=== PATIENT | male | born 1960 | race Caucasian/White ===

== ENCOUNTER → 2019-09-18 13:57 | Outpatient (CLI) | payer OTHER, SELFPAY ==
[2019-09-18 14:38] LABS: Basophils % 0.6 % (0.1-2.0); Eosinophils # 0.3 K/mm3 (0.0-0.4); Eosinophils % 4.8 % (0.1-12.0); Hematocrit 51.4 % (42.0-52.0); Hemoglobin 17.6 g/dL (14.1-18.0); Lymphocytes # 1.9 K/mm3 (0.7-4.5); Lymphocytes % 27.1 % (10-50); Mean Corpuscular HGB Conc 34.2 g/dL (31.8-35.4); Mean Corpuscular Hemoglobin 31.7 pg (27.0-31.2); Mean Corpuscular Volume 92.7 fl (80-94); Mean Platelet Volume 8.5 fl (7.4-10.4); Monocytes # 0.6 K/mm3 (0.1-1.0); Monocytes % 7.9 % (1.7-9.3); Neutrophils # 4.2 K/mm3 (1.8-7.8); Neutrophils % 59.6 % (37.0-80.0); Platelet Count 233 K/mm3 (142-424); Red Blood Count 5.54 M/mm3 (4.60-6.20); Red Cell Distribution Width 12.8 % (11.5-17.5); White Blood Count 7.1 K/mm3 (4.8-10.8)
[2019-09-18 14:46] LABS: Chloride 102 mmol/L (98-107)
[2019-09-18 14:47] LABS: Potassium 4.5 mmoL/L (3.5-5.1); Sodium 134 mmol/L (136-145)
[2019-09-18 14:49] LABS: Alanine Aminotransferase 37 U/L (12-78); Albumin Level 4.4 g/dl (3.5-5.0); Albumin/Globulin Ratio 1.6 (1.1-1.8); Alkaline Phosphatase 60 U/L (38-126); Anion Gap 11.5 mEq/L (5-15); Aspartate Amino Transferase 34 U/L (17-59); Bilirubin,Total 0.7 mg/dl (0.2-1.3); Blood Urea Nitrogen 14 mg/dl (9-20); Carbon Dioxide 25 mmol/L (22.0-30.0); Estimated Glomerular Filt Rate 76 ml/min (>60); GFR (African American) 92 ML/MIN (>60); Globulin 2.8 g/dL (1.3-3.2); Total Protein,Serum 7.2 g/dl (6.3-8.2)
[2019-09-18 14:50] LABS: Calcium 9.4 mg/dl (8.4-10.2); Chol/HDL Ratio 3.4 (1-3.5); Cholesterol 213 mg/dl (140-200); Glucose 107 mg/dl (74-100); HDL Cholesterol 62 mg/dl (40-60); Triglycerides 132 mg/dl (30-150); VLDL Cholesterol 26 mg/dL (0-40)
[2019-09-18 15:01] LABS: Direct LDL Cholesterol 139.43 mg/dL (100-129)
[2019-09-18 15:06] LABS: T4 (Thyroxine) 10.2 ug/dl (5.53-11.0)
[2019-09-18 15:20] LABS: Thyroid Stimulating Hormone 3.97 uIU/mL (0.465-4.68)
[2019-09-20 04:47] LABS: PSA, Free 0.27 ng/mL
[2019-09-22 12:40] LABS: Testosterone, Total, LC/MS 455.6 ng/dL (264.0-916.0)
== END ==
PROVIDERS: Visit Provider Family Medicine
DX: R53.83 Other fatigue (principal); E29.1 Testicular hypofunction; M19.90 Unspecified osteoarthritis, unspecified site; I10 Essential (primary) hypertension
CPT/HCPCS: 80053; 80061; 84153; 84154; 84402; 84403; 84436; 84443; 85025

== ENCOUNTER → 2020-05-31 13:51 | Outpatient (CLI) | payer OTHER, SELFPAY ==
[2020-05-31 14:03] LABS: Alanine Aminotransferase 47 U/L (12-78); Albumin Level 4.7 g/dl (3.5-5.0); Albumin/Globulin Ratio 1.5 (1.1-1.8); Alkaline Phosphatase 67 U/L (38-126); Anion Gap 12.6 mEq/L (5-15); Aspartate Amino Transferase 39 U/L (17-59); Bilirubin,Total 0.5 mg/dl (0.2-1.3); Blood Urea Nitrogen 13 mg/dl (9-20); Calcium 9.7 mg/dl (8.4-10.2); Carbon Dioxide 22 mmol/L (22.0-30.0); Chloride 107 mmol/L (98-107); Chol/HDL Ratio 4.2 (1-3.5); Cholesterol 238 mg/dl (140-200); Estimated Glomerular Filt Rate 86 ml/min (>60); GFR (African American) 104 ML/MIN (>60); Globulin 3.1 g/dL (1.3-3.2); Glucose 92 mg/dl (74-100); HDL Cholesterol 57 mg/dl (40-60); Potassium 4.6 mmoL/L (3.5-5.1); Sodium 137 mmol/L (136-145); Total Protein,Serum 7.8 g/dl (6.3-8.2); Triglycerides 236 mg/dl (30-150); VLDL Cholesterol 47 mg/dL (0-40)
[2020-05-31 14:14] LABS: Direct LDL Cholesterol 145.37 mg/dL (100-129)
[2020-05-31 14:25] LABS: Basophils # 0.1 K/mm3 (0-0.2); Basophils % 0.6 % (0.1-2.0); Eosinophils # 0.4 K/mm3 (0.0-0.4); Eosinophils % 4.9 % (0.1-12.0); Hematocrit 51.2 % (42.0-52.0); Hemoglobin 16.9 g/dL (14.1-18.0); Lymphocytes # 2.1 K/mm3 (0.7-4.5); Lymphocytes % 24.4 % (10-50); Mean Corpuscular HGB Conc 33.1 g/dL (31.8-35.4); Mean Corpuscular Hemoglobin 31.2 pg (27.0-31.2); Mean Corpuscular Volume 94.2 fl (80-94); Mean Platelet Volume 8.3 fl (7.4-10.4); Monocytes # 0.7 K/mm3 (0.1-1.0); Monocytes % 7.5 % (1.7-9.3); Neutrophils # 5.5 K/mm3 (1.8-7.8); Neutrophils % 62.6 % (37.0-80.0); Platelet Count 248 K/mm3 (142-424); Red Blood Count 5.43 M/mm3 (4.60-6.20); Red Cell Distribution Width 12.6 % (11.5-17.5); White Blood Count 8.7 K/mm3 (4.8-10.8)
[2020-05-31 14:35] LABS: Prostate Specific Ag Screen 0.9 ng/ml (0.0-4.0)
[2020-06-06 19:43] LABS: Testosterone, Total, LC/MS 617.8 ng/dL (264.0-916.0); Testosterone,Free 4.7 pg/mL (6.6-18.1)
== END ==
PROVIDERS: Visit Provider Family Medicine
DX: E29.1 Testicular hypofunction (principal); M19.90 Unspecified osteoarthritis, unspecified site; Z12.5 Encounter for screening for malignant neoplasm of prostate; Z79.899 Other long term (current) drug therapy
CPT/HCPCS: 80053; 80061; 84402; 84403; 85025; G0103

== ENCOUNTER → 2020-07-02 07:40 | Outpatient (CLI) | payer OTHER, SELFPAY ==
--- NOTE | 2020-07-02 | CA_ITS ---
APPROVED REPORT Exam: Pharmacologic Technologist: Joyce Inman Ht: 6 ft 7 in Wt: 234 lbs BSA: 2.44 m2 HR: 71 bpm BP: 136/90 mmHg Indications: Shortness of Air, chest pain, Bruit Medical History Medications: Lisinopril,,,,, Lorazepam,,,,, Aspirin,,,,, Citalopram,,,,, Nitroglycerin,,,,, Testosterone,,,,, Stress Test Details Test: LEXISCAN HR Resting HR: 74 bpm Max Heart Rate (APMHR): 159.289436 bpm Max HR Achieved: 114 bpm Target HR (85% APMHR): 135.663419 bpm % of APMHR: 71.70 Recovery HR: 87 bpm BP Resting BP: 136.0/90.0 mmHg Max BP: 154.0/96.0 mmHg Recovery BP: 147.0/97.0 mmHg ECG Resting ECG: Normal sinus rhythm, right bundle branch block Clinical Exercise duration: 04:00 min Highest Stage Achieved: Stress ECG Conclusion Symptoms: Shortness of air, mild chest tightness, lightheaded Arrhythmias/Ectopy: None ST-T Changes: No significan changes Conclusion: Unremarkable Lexiscan stress. Myoview images reported separately. Electronically signed by : Johnathon Martini, 07/02/2020 21:57:52
--- NOTE | 2020-07-02 07:41 | NM_ITS ---
APPROVED REPORT Exam: Nuclear Stress Test Indication: Chest pain, Abnormal EKG, HTN, High cholesterol Patient Location: Outpatient Stress Tech: Joyce Inman [place] Tech:Yoanna Chowdary, ARRT, RT (R)(N) Ht: 6 ft 7 in Wt: 240 lbs HR: 71 bpm BP: 136/90 mmHg BSA: 2.46 m2 BMI: 27.0 History: Chest pain, Abnormal EKG, HTN, High cholesterol Procedure: Patient received a 0.4 mg of intravenous Lexiscan, resting heart rate 71 bpm, resting blood pressure 136/90 mmHg, with Lexiscan maximum heart rate achived was 111 bpm which is Less than 85 % of the maximum predicted heart rate and blood pressure was 131/82 mmHg. Electrocardiogram Resting electrocardiogram showed sinus rhythm right bundle branch block, with Lexiscan there is less than 1.[address] segment depression noted from the baseline EKG. The EKG portion of the Lexiscan is nondiagnostic. Cardiac Stress and Resting SPECT Images: Cardiac Stress and Resting SPECT images were obtained using technetium 99m Myoview 30.0 mCi stress and 9.60 mCi at rest. Gated SPECT for analysis of segmental wall motion and calculation of the ejection fraction also done. Cardiac stress and resting SPECT images show uniform myocardial activity without segmental perfusion abnormality, computer derived ejection fraction is 57% with no regional wall motion abnormality, right ventricle is mildly enlarged with normal contractility, however there is mild transient ischemic dilatation of the left ventricle seen raising the concerns for presence of balanced ischemia. Conclusion: 1. The EKG portion of the Lexiscan is nondiagnostic. 2. No scintigraphic evidence of reversible ischemia seen, computer derived ejection fraction is 57% with no regional wall motion abnormality, right ventricle is mildly enlarged with normal contractility, however there is mild transient ischemic dilatation of the left ventricle seen, raising the concerns for presence of balanced ischemia. 3. Abnormal Lexiscan Myoview study. Electronically signed by : Johnathon Martini, 07/02/2020 22:09:14
--- NOTE | 2020-07-02 08:02 | CA_ITS ---
APPROVED REPORT [place] [facility] Attendant: JAQUELIN Laterality: Bilateral Study Quality: Excellent Indications: family hx of lorenza, rt bruit Doppler Spectral Velocity Analysis ECA (R) 88.30/17.10 cm/s ECA (L) 84.50/13.50 cm/s dICA (R) 85.70/34.30 cm/s dICA (L) 74.50/26.60 cm/s Vimal (R) 67.70/24.80 cm/s Vimal (L) 72.00/25.70 cm/s pICA (R) 85.70/24.00 cm/s pICA (L) 110.50/27.40 cm/s dCCA (R) 114.80/31.70 cm/s dCCA (L) 96.00/26.60 cm/s pCCA (R) 113.10/24.80 cm/s pCCA (L) 121.70/23.10 cm/s Vert (R) 37.90/14.80 cm/s Vert (L) 42.60/12.00 cm/s ICA/CCA 0.76 ICA/CCA 1.15 Findings Duplex evaluation demonstrates antegrade flow of the bilateral Vertebral Arteries. Duplex evaluation demonstrates stenosis of the right proximal internal carotid artery <20% with PSV <140 cm/sec, EDV <100 cm/sec, and IC/CC Ratio <4.0. Duplex evaluation demonstrates stenosis of the left proximal internal carotid artery <20% with PSV <140 cm/sec, EDV <100 cm/sec, and IC/CC Ratio <4.0. Conclusion Duplex evaluation demonstrates antegrade flow of the bilateral Vertebral Arteries. Duplex evaluation demonstrates stenosis of the right proximal internal carotid artery <20% with PSV <140 cm/sec, EDV <100 cm/sec, and IC/CC Ratio <4.0. Duplex evaluation demonstrates stenosis of the left proximal internal carotid artery <20% with PSV <140 cm/sec, EDV <100 cm/sec, and IC/CC Ratio <4.0. Electronically signed by : Delroy Bird MD 07/02/2020 17:04:42
--- NOTE | 2020-07-02 08:02 | CA_ITS ---
APPROVED REPORT EXAM: Comprehensive 2D, Doppler, and color-flow Echocardiogram Nursing Associate: Leonor Oconnell, MATILDA, RVS Ht: 6 ft 7 in Wt: 234lbs BSA: 2.44 HR: 67 bpm BP: 131/93 mmHg Indications: CP, SOB, ABN EKG, Murmur 2D Dimensions Aortic Root 3.18 cm LA Volume 39.30 mL LVOT 2.04 cm (M/F) 1.5-2.5 LA Volume Index 16.10 mL/m2 (M/F) 16-34 M-Mode Dimensions RVDd 2.47 cm (0.9-2.6) LA Diam 3.88 cm (1.9-4.0) LVDd 5.62 cm (3.5-5.7) Ao Diam 3.02 cm (2.0-3.7) LVDs 3.18 cm (3.5-5.7) IVSd 0.98 cm (0.6-1.1) PWd 0.89 cm (0.6-1.1) EF (Teich) 69.40% EPSs 0.64 cm FS 39.30% EDV (Teich) 131.80 mL TAPSE 1.90 (<1.7) ESV (Teich) 40.30 mL LV Diastology E Decel Time 190.00 (160-240 msec) E/A Ratio 0.96 MED E' 7.10 (< 7 cm/sec) MED A' 10.40 cm/s E'/MED E' Ratio 7.70 (>14) LAT E' 6.10 (<10 cm/sec) LAT A' 11.80 cm/s E/LAT E' Ratio 8.97 (>14) Aortic Valve LVOT Max 80.00 (70-110 cm/s) LVOT VTI 17.52 cm Mitral Valve MV E Max Narendra. 55.00 (40-130 cm/s) MV A Velocity 57.00 (40-130 cm/s) E/A Ratio 0.96 MV Decel. Time 190.00 (160-240 ms) MV PHT 56.00 ms Pulmonary Valve PV Peak Velocity 76.00 (50-150 cm/s) CO End VMAX 177.00 cm/s Tricuspid Valve TR P. Velocity 161.00 cm/s RAP Estimate 10.00 mmHg RVSP 20.40 mmHg Left Ventricle Left atrium is mildly enlarged, left ventricle is normal size, mild concentric left ventricular hypertrophy, visually estimated ejection fraction 55% with no regional wall motion abnormality, grade 1 diastolic dysfunction seen without tissue Doppler evidence of raise left atrial pressure. Right Ventricle Right atrium and right ventricle are normal size and contractility. Aortic Valve Aortic valve is minimally thickened and fibrosed, there is no aortic stenosis or aortic insufficiency. Mitral Valve Mitral valve is minimally thickened, there is mild mitral regurgitation. Tricuspid Valve Tricuspid grossly normal, there is trace tricuspid regurgitation. Tricuspid regurgitation jet velocity is inadequate for calculation of the right ventricular systolic pressure. Pulmonic Valve Pulmonic valve is poorly visualized. Great Vessels Aortic root is normal size. Pericardium No significant pericardial effusion noted. Conclusion 1. Mildly enlarged left atrium, normal left ventricular size, mild concentric left ventricular hypertrophy, visually estimated ejection fraction 55% with no regional wall motion abnormality, grade 1 diastolic dysfunction seen without tissue Doppler evidence of raise left atrial pressure. 2. Minimally thickened and calcified aortic valve without aortic stenosis or aortic insufficiency. 3. Mild mitral and trace tricuspid regurgitation. 4. No significant pericardial effusion noted. Electronically signed by : Johnathon Martini, 07/02/2020 21:12:48
--- NOTE | 2020-07-02 08:52 | HMH.ITSHM ---
Current Home Medications as stated by this patient Franklin Fonseca or operations representative. []NITRO LORAZEPAM LISINOPRIL CITALOPRAM ASA
== END ==
PROVIDERS: PCP Family Medicine; Visit Provider Nurse Practitioner Family
DX: R06.00 Dyspnea, unspecified (principal); R07.9 Chest pain, unspecified; R94.31 Abnormal electrocardiogram [ECG] [EKG]; R09.89 Other specified symptoms and signs involving the circulatory and respiratory systems; R01.1 Cardiac murmur, unspecified; Z82.49 Family history of ischemic heart disease and other diseases of the circulatory system
CPT/HCPCS: 78452; 93017; 93306; 93880; A9502; J2785

== ENCOUNTER → 2020-07-15 10:56 | Outpatient (CLI) | payer OTHER, SELFPAY ==
[2020-07-15 11:36] LABS: Basophils % 0.6 % (0.1-2.0); Eosinophils # 0.4 K/mm3 (0.0-0.4); Eosinophils % 5.8 % (0.1-12.0); Hematocrit 49.3 % (42.0-52.0); Hemoglobin 16.8 g/dL (14.1-18.0); Lymphocytes # 1.7 K/mm3 (0.7-4.5); Mean Corpuscular HGB Conc 34.1 g/dL (31.8-35.4); Mean Corpuscular Hemoglobin 31.4 pg (27.0-31.2); Mean Platelet Volume 7.8 fl (7.4-10.4); Monocytes # 0.5 K/mm3 (0.1-1.0); Monocytes % 7.7 % (1.7-9.3); Neutrophils # 3.8 K/mm3 (1.8-7.8); Neutrophils % 59.9 % (37.0-80.0); Platelet Count 239 K/mm3 (142-424); Red Blood Count 5.36 M/mm3 (4.60-6.20); Red Cell Distribution Width 12.9 % (11.5-17.5); White Blood Count 6.4 K/mm3 (4.8-10.8)
[2020-07-15 12:21] LABS: Anion Gap 12.3 mEq/L (5-15); Blood Urea Nitrogen 17 mg/dl (9-20); Calcium 9.7 mg/dl (8.4-10.2); Carbon Dioxide 26 mmol/L (22.0-30.0); Chloride 104 mmol/L (98-107); Estimated Glomerular Filt Rate 76 ml/min (>60); GFR (African American) 92 ML/MIN (>60); Glucose 111 mg/dl (74-100); Potassium 4.3 mmoL/L (3.5-5.1); Sodium 138 mmol/L (136-145)
[2020-07-15 12:51] LABS: Coronavirus 19 IgG Antibody Negative (Negative); Coronavirus 19 IgM Antibody Negative (Negative)
== END ==
PROVIDERS: Visit Provider Urology
DX: Z01.812 Encounter for preprocedural laboratory examination (principal); Z20.822 Contact with and (suspected) exposure to COVID-19; R06.02 Shortness of breath; I20.9 Angina pectoris, unspecified; R94.30 Abnormal result of cardiovascular function study, unspecified; I10 Essential (primary) hypertension
CPT/HCPCS: 36415; 80048; 85025; 86328

== ENCOUNTER 2020-07-16 08:44 | Day surgery (SDC) | payer BC, SELFPAY ==
[2020-07-16] VITALS (13 sets, daily range): BP systolic 93–153; BP diastolic 55–99; PULSE 63–83; RESP 12–18; TEMP 36.6–36.9; O2SAT 91–97; BMI 26.6
--- NOTE | 2020-07-16 08:10 | IR_ITS ---
APPROVED REPORT Patient Location: Outpatient [place] Tender: GLORIA Zelaya RT (R) PROCEDURES Left heart catheterization Left ventriculogram Selective coronary angiogram INDICATION High risk abnormal Myoview, Angina pectoris Informed consent was obtained prior to the procedure. COMPLICATIONS None Estimated Blood Loss: Less than 10 mls TECHNIQUE One percent lidocaine used to anesthetize the right anterior aspect of the wrist. The right radial artery was accessed via the Seldinger technique. A 6 [place] sheath was placed in the right radial artery. 2.5 mg of verapamil, 800 mcg of nitroglycerin, 1mg Lidocaine and 5000 U Heparin were given through the arterial sheath. The trap catheter was also used to perform left heart catheterization, left ventriculogram and selective coronary angiogram. At the end of the procedure the sheath was removed good hemostasis was achieved using Traclet band, patient was transferred to the postop holding area in stable condition. ANGIOGRAPHIC RESULTS The left main artery Normal The left anterior descending artery Has proximal and mid vessel mild 10% luminal irregularities The circumflex artery Nondominant with mild 10% luminal irregularities The right coronary artery Is dominant with mild 10% luminal irregularities The WHITE ventriculogram reveals Normal 65% The left ventricular end-diastolic pressure 10 mmHg IMPRESSION Mild nonflow limiting coronary disease Normal ejection fraction Normal left ventricular cell pressure PLAN 1. Continue medical management 2. Evaluation of noncardiac chest pain Electronically signed by : Mohan Pacheco, 07/16/2020 10:53:03
== END 2020-07-16 14:02 | disposition home or self-care (01) ==
LOC: CATHLAB 08:46
PROVIDERS: PCP Family Medicine; Visit Provider Internal Medicine
DX: I25.119 Atherosclerotic heart disease of native coronary artery with unspecified angina pectoris (principal); I10 Essential (primary) hypertension; R94.30 Abnormal result of cardiovascular function study, unspecified; I65.23 Occlusion and stenosis of bilateral carotid arteries; E78.5 Hyperlipidemia, unspecified
CPT/HCPCS: 93458; 99152; C1725; C1769; J1644; Q9967

== ENCOUNTER → 2020-11-14 11:43 | Outpatient (CLI) | payer BC, SELFPAY ==
[2020-11-14 12:17] LABS: Basophils # 0.1 K/mm3 (0-0.2); Basophils % 0.4 % (0.1-2.0); Eosinophils # 0.3 K/mm3 (0.0-0.4); Eosinophils % 2.4 % (0.1-12.0); Hematocrit 46.6 % (42.0-52.0); Hemoglobin 15.1 g/dL (14.1-18.0); Lymphocytes # 1.4 K/mm3 (0.7-4.5); Lymphocytes % 12.6 % (10-50); Mean Corpuscular HGB Conc 32.5 g/dL (31.8-35.4); Mean Corpuscular Hemoglobin 30.3 pg (27.0-31.2); Mean Corpuscular Volume 93.3 fl (80-94); Monocytes # 0.8 K/mm3 (0.1-1.0); Neutrophils # 8.6 K/mm3 (1.8-7.8); Neutrophils % 77.6 % (37.0-80.0); Platelet Count 326 K/mm3 (142-424); Red Blood Count 4.99 M/mm3 (4.60-6.20); Red Cell Distribution Width 12.7 % (11.5-17.5)
--- NOTE | 2020-11-14 12:35 | XR_ITS ---
PROCEDURE: XR CHEST 2V CLINICAL HISTORY: Hypoxia COMPARISON: No exams were available for comparison FINDINGS: There is diffuse multifocal bilateral alveolar opacification with scattered areas of atelectasis. This can be seen with Covid19/viral pneumonia. Trace left effusion. Normal heart size. No acute bony anomalies. No evidence of pneumothorax. There does appear to be some subcutaneous emphysema in both sides of the neck and supraclavicular region as well as along the left scapular region. Faint lucency noted in the left paratracheal region raising the suspicion of possible pneumomediastinum. Consider chest CT for further evaluation. IMPRESSION: Diffuse bilateral pneumonia with atelectatic changes which could be seen with Covid19 pneumonia. Trace left effusion. Subcutaneous emphysema with possible pneumomediastinum. Dictated by: Delroy Bird MD 11/14/2020 12:51 Delroy Bird MD in [place] 11/14/2020 12:51
[2020-11-14 12:48] LABS: Chloride 102 mmol/L (98-107); Potassium 4.3 mmoL/L (3.5-5.1); Sodium 138 mmol/L (136-145)
[2020-11-14 12:51] LABS: Alanine Aminotransferase 55 U/L (12-78); Albumin Level 3.1 g/dl (3.5-5.0); Alkaline Phosphatase 76 U/L (38-126); Anion Gap 11.3 mEq/L (5-15); Aspartate Amino Transferase 37 U/L (17-59); Bilirubin,Total 0.2 mg/dl (0.2-1.3); Blood Urea Nitrogen 12 mg/dl (9-20); Carbon Dioxide 29 mmol/L (22.0-30.0); Estimated Glomerular Filt Rate 98 ml/min (>60); GFR (African American) 119 ML/MIN (>60); Total Protein,Serum 6.1 g/dl (6.3-8.2)
[2020-11-14 12:52] LABS: Calcium 8.7 mg/dl (8.4-10.2); Glucose 100 mg/dl (74-100)
[2020-11-14 12:57] LABS: D-Dimer 0.88 ug/mL (0.0-0.5)
[2020-11-14 13:41] LABS: Influenza A, PCR Not Detected (NotDetected); Influenza B, PCR Not Detected (NotDetected)
[2020-11-14 14:04] LABS: Coronavirus 19, PCR Detected (NotDetected)
== END ==
PROVIDERS: Internal Medicine Pulmonary Disease; Visit Provider Nurse Practitioner Family
DX: U07.1 COVID-19 (principal); J44.9 Chronic obstructive pulmonary disease, unspecified; R06.02 Shortness of breath; R06.03 Acute respiratory distress; R50.9 Fever, unspecified
CPT/HCPCS: 36415; 71046; 80053; 85025; 85378; 87581; 87633; 87798; U0003

== ENCOUNTER 2020-11-14 13:44 | Inpatient (IN) | payer BC, SELFPAY ==
[2020-11-14 13:48] VITALS: BMI 24.2
--- NOTE | 2020-11-14 15:01 | HMH.HP ---
*Admission Date: 11/14/20 *Chief complaint: Shortness of breath *History of present illness: 59-year-old male patient admitted from pulmonary clinic after referral from primary care for continuing shortness of breath after COVID-19 positive and hospital admission. He was Covid positive and admitted to [facility] for 9-day stay, he was not intubated and did not require BiPAP and he reports oxygenation was supported with nasal cannula only. He also did receive remdesivir and was discharged home around 11/04/2020 and has complained of shortness of breath since. He had an appointment today in primary care with shortness of breath, unable to complete sentences without breathing, and no pulmonary follow-up scheduled after hospital discharge. He was seen in [facility] pulmonary clinic and chest x-ray was ordered which revealed COVID-19 pneumonia and a concern for pneumomediastinum. He was admitted for further testing and oxygenation [facility] History I have reviewed the patient's past medical history: Yes Medical History: Reports:: Anxiety, Depression Denies:: Seizures *Have you ever received a pneumonia vaccine?: No *Have you received a flu vaccine this season?: Yes Other Medical History: Reports: Other Other Surgeries: Yes: Cardiac Catheterization Amputation: No Fractures: No - *Social History Last grade of school completed: High school graduate Smoking Status: Never smoker Alcohol Intake: never Alcohol Intake Frequency:: holidays/special occasions only Substance Use Type: denies use Last Used Substance: unknown *Occupational Status:: employed Housing: house Household Members: spouse *Travel in the last 8 weeks: None - Psychiatric History Expresses thoughts of harming self/others: None Pschychiatric History:: Reports:: Anxiety, Depression Family Hx:: No significant family history Review of Systems - Review of Systems Review of systems:: pertinent systems reviewed and negative unless documented below - Constitutional Reports fatigue, Reports lack of energy, Denies body ache(s) Meds Home Medications Medication Instructions Recorded Confirmed Type aspirin 81 mg tablet,delayed 81 mg PO DAILY 06/11/20 11/14/20 History release Testosterone 20.25 mg TOPICAL DAILY 07/16/20 11/14/20 History Citalopram Hydrobromide 20 mg PO DAILY 11/14/20 11/14/20 History [Citalopram HBr] lisinopriL [Lisinopril] 20 mg PO DAILY 11/14/20 11/14/20 History Allergies Allergy/AdvReac Type Severity Reaction Status Date / Time No Known Allergies Allergy Verified 11/14/20 12:21 Exam I & O for Last 24 hours: Intake & Output 11/11/20 11/12/20 11/13/20 11/14/20 23:59 23:59 23:59 23:59 Weight 215 lb - Constitutional mild distress, thin - *Routine HEENT Exam Head: Present: normocephalic Eye: Present: EOMI ENT: Present: mucous membranes moist - *Routine Neck Exam Present: trachea midline. Absent: tracheal deviation - *Routine Respiratory Exam Present: decreased breath sounds, crackles - *Routine Cardiovascular Exam Present: murmur - *Routine Abdominal Exam Present: soft, normoactive bowel sounds. Absent: tenderness, firm - *Routine Rectal Exam Rectal:: deferred - *Routine Genitalia Exam Genitalia:: deferred - *Routine Extremities Exam Present: full ROM, pulses intact. Absent: cyanosis, clubbing, edema, calf tenderness - *Routine Skin Exam Present: intact, dry, warm. Absent: cyanosis, erythema, wounds - *Routine Neurological Exam Present: alert, oriented X3. Absent: motor deficit - Routine Psychiatric Exam Present: normal affect, normal thought process. Absent: auditory hallucinations Assessment and Plan (1) Pneumonia due to COVID-19 virus Status: Acute Category: Medical Code(s): U07.1 - COVID-19; J12.82 - Pneumonia due to coronavirus disease 2019 (2) Abnormal result of cardiovascular function study Status: Acute Category: Medical Code(s): R94.30 - Abnorma
--- NOTE | 2020-11-14 15:56 | CT_ITS ---
PROCEDURE: CT ANGIO CHEST PE PROTOCOL CLINCIAL INDICATION: Pneumo Covid19 pneumonia COMPARISON: CR XR CHEST 2V from 11/14/2020 TECHNIQUE: IV Contrast: 70ML Isovue 370 Axial images obtained with sagittal and coronal reformats. All CT scans at the facility use one or more dose reduction, viz: automated exposure control, ma/kV adjustment per patient size (including targeted exams where dose is matched to indication, i.e. head), or iterative reconstruction technique. FINDINGS: There is diffuse subcutaneous emphysema within the lower neck extending into the sternoclavicular region and the upper presternal area. Small amount of gas is present in the left supraclavicular area and left axillary region. Small amount of gas noted in the left upper mediastinum just lateral to the carotid artery. There is a small amount of gas in the mediastinum anteriorly. Scattered small amount of gas is present also in the lower chest anteriorly within pre cardial fat. This does not appear to represent a pneumopericardium. No obvious pneumothorax. Multifocal areas of consolidation and ground-glass opacities with atelectatic changes are present in both upper and lower lobes along with fibrous bands consistent with Covid19 pneumonia. There is trace right-sided pleural effusion. No evidence of aortic aneurysm or dissection. No evidence of pulmonary embolus. No acute bony findings. Upper abdominal images show fatty liver. No evidence of pneumoperitoneum. IMPRESSION: 1. Mild diffuse subcutaneous emphysema in the upper chest and left axillary region. 2. Pneumomediastinum. No evidence of pneumothorax. 3. Diffuse multifocal areas of consolidation with atelectasis, ground-glass opacities, and fibrous bands consistent with Covid19 pneumonia 4. No evidence of pulmonary embolus or aortic aneurysm or dissection Dictated by: Delroy Bird MD 11/14/2020 16:51 Delroy Bird MD in [place] 11/14/2020 16:51
--- NOTE | 2020-11-14 15:58 | HMH.PULMCON ---
*Admission Date: 11/14/20 *History of present illness: Ms. Betancourt is a 59-year-old male diagnosed with COVID-19 pneumonia around the last week of September 2020 when admitted to the hospital received plasma infusion along with remdesivir and dexamethasone and was discharged home around 11/04/2020 presented to the primary care clinic evaluate for her symptoms found to be in respiratory distress and shortness of breath and was referred to the pulmonary clinic for further evaluation during which patient found to be in severe respiratory distress on his chest x-ray presented possible pneumomediastinum along with significant incisional changes. Patient COVID-19 PCR also resulted positive and he was admitted for observation and for further management and testing. [facility] History Medical History: Reports:: Anxiety, Depression Denies:: Seizures *Have you ever received a pneumonia vaccine?: No *Have you received a flu vaccine this season?: Yes Other Medical History: Reports: Other Other Surgeries: Yes: Cardiac Catheterization - *Social History Last grade of school completed: Some college Smoking Status: Never smoker Alcohol Intake: never Alcohol Intake Frequency:: holidays/special occasions only Substance Use Type: denies use *Occupational Status:: employed Housing: house Household Members: spouse *Travel in the last 8 weeks: None - Psychiatric History Expresses thoughts of harming self/others: None Suicide Plan Description: No Plan Pschychiatric History:: Reports:: Anxiety, Depression Family Hx:: Other ROS - Cons Reports anorexia, Reports body ache(s), Reports chills, Reports fatigue, Reports fever(s), Reports weight loss - Card Reports chest pain, Reports shortness of breath, Reports shortness of breath with activity - Resp Respiratory: Reports chest congestion, Reports cough, Reports dyspnea on exertion, Reports pain with cough - GI Gastrointestingal: Denies: abdominal pain - Psych Reports abnormal sleep pattern Meds Home Medications Medication Instructions Recorded Confirmed Type aspirin 81 mg tablet,delayed 81 mg PO DAILY 06/11/20 11/14/20 History release Testosterone 20.25 mg TOPICAL DAILY 07/16/20 11/14/20 History Citalopram Hydrobromide 20 mg PO DAILY 11/14/20 11/14/20 History [Citalopram HBr] lisinopriL [Lisinopril] 20 mg PO DAILYP PRN 11/14/20 11/14/20 History Allergies Allergy/AdvReac Type Severity Reaction Status Date / Time No Known Allergies Allergy Verified 11/14/20 12:21 Exam - Constitutional Constitutional:: Present: healthy appearing. Absent: no acute distress, comfortable - HENMT Exam HENMT: Present: normocephalic, atraumatic - Eye Exam Eyes:: Present: normal appearance both eyes and related structures - Neck Exam Neck:: Present: normal visual inspection - Respiratory Exam Respiratory:: Present: respiratory distress, decreased breath sounds, crackles. Absent: able to speak in complete sentences - Cardiovascular Exam Cardiac:: Present: S1, S2 - GI Exam GI:: Present: soft - Skin Exam Skin: Present: warm, no rash - Neurological Exam Neurological: Present: alert, awake, normal cognition - Extremities Exam Extremities: Present: no cyanosis, no clubbing Assessment and Plan - Assessment and plan all Dx Assessment and Plan for all problems:: #Acute hypoxic respiratory failure: #History of COVID-19 pneumonia: #Pneumomediastinum: 59-year-old male recent diagnosis of COVID-19 and discharged in the hospital presented to the clinic to evaluate for exertional dyspnea and found to be in new onset worsening respiratory along with subjective fevers and chills along with possible exposure. Patient chest x-ray showed bilateral interstitial changes along with pneumomediastinum. Repeat COVID-19 PCR positive. Given patient's respiratory status along with fevers and possible exposure continue respiratory isolation awaiting CT imaging and further testing to rule out active COVID-19
[2020-11-14 16:00] VITALS: PULSE 129; RESP 22; O2SAT 95
--- NOTE | 2020-11-14 16:31 | HMH.PHAVTE ---
[facility] Pharmacy VTE Monitoring - Patient Demographics Admission date: 11/14/20 Report Date: 11/14/20 Time: 16:31 Allergies/Adverse Reactions: Patient Allergies No Known Allergies Allergy (Verified 11/14/20 12:21) Height: 2.01 m Weight: 97.522 kg - VTE Risk Was VTE Risk Assessment Performed: Yes VTE Score: 2 VTE Risk Level: Very Low Risk - Prophylaxis VTE Prophylaxis Ordered?: Yes Types of VTE Prophylaxis: TEDS Knee High Location of Applied Device: Bilateral Lower Extremeties
[2020-11-14 17:38] LABS: C-Reactive Protein 162.3 mg/L (0-4); D-Dimer 1.14 ug/mL (0.0-0.5)
[2020-11-14 18:08] LABS: Ferritin 703 ng/ml (17.9-464)
[2020-11-14 18:32] LABS: Lactate Dehydrogenase 309 U/L (313-618)
[2020-11-14 18:49] VITALS: BP 130/74; PULSE 129; RESP 22; TEMP 38.6; O2SAT 95
[2020-11-14 20:00] VITALS: BP 117/72; PULSE 91; RESP 18; TEMP 37.4; O2SAT 96; O2SAT 98
[2020-11-14 23:46] VITALS: BP 132/73; PULSE 82; RESP 18; TEMP 36.8; O2SAT 98
[2020-11-15 04:00] VITALS: BP 120/78; PULSE 73; RESP 16; TEMP 36.4; O2SAT 98
[2020-11-15 06:21] LABS: Basophils % 0.2 % (0.1-2.0); Eosinophils % 0.2 % (0.1-12.0); Hematocrit 41.5 % (42.0-52.0); Hemoglobin 13.8 g/dL (14.1-18.0); Lymphocytes # 0.9 K/mm3 (0.7-4.5); Lymphocytes % 10.3 % (10-50); Mean Corpuscular HGB Conc 33.2 g/dL (31.8-35.4); Mean Corpuscular Volume 93.3 fl (80-94); Mean Platelet Volume 8.4 fl (7.4-10.4); Monocytes # 0.5 K/mm3 (0.1-1.0); Monocytes % 5.3 % (1.7-9.3); Neutrophils # 7.5 K/mm3 (1.8-7.8); Neutrophils % 84.1 % (37.0-80.0); Platelet Count 260 K/mm3 (142-424); Red Blood Count 4.45 M/mm3 (4.60-6.20); Red Cell Distribution Width 12.6 % (11.5-17.5)
[2020-11-15 06:29] VITALS: BMI 23.5
[2020-11-15 06:50] LABS: Anion Gap 12.1 mEq/L (5-15); Blood Urea Nitrogen 16 mg/dl (9-20); Calcium 8.5 mg/dl (8.4-10.2); Carbon Dioxide 29 mmol/L (22.0-30.0); Chloride 103 mmol/L (98-107); Chol/HDL Ratio 4.4 (1-3.5); Cholesterol 161 mg/dl (140-200); Creatinine Clearance Estimated 104 mL/min (50-200); Estimated Glomerular Filt Rate 115 ml/min (>60); GFR (African American) 139 ML/MIN (>60); Glucose 182 mg/dl (74-100); HDL Cholesterol 37 mg/dl (40-60); Potassium 5.1 mmoL/L (3.5-5.1); Sodium 139 mmol/L (136-145); Triglycerides 56 mg/dl (30-150); VLDL Cholesterol 11 mg/dL (0-40)
[2020-11-15 07:01] LABS: Direct LDL Cholesterol 93.43 mg/dL (100-129)
--- NOTE | 2020-11-15 07:24 | HMH.PHAINT ---
MEDICATION RECONCILIATION COMPLETED ON PATIENT USING EXTERNAL FILL HISTORY FROM PHARMACY. -CHAMP INGRAM, KATELYND
[2020-11-15 07:53] VITALS: BP 119/74; PULSE 92; RESP 22; TEMP 36.5; O2SAT 97
[2020-11-15 08:00] VITALS: O2SAT 94
--- NOTE | 2020-11-15 09:34 | PC.NURSE ---
pt has bed at bedside and prefers not to be induced.
--- NOTE | 2020-11-15 09:43 | CA_ITS ---
APPROVED REPORT EXAM: Comprehensive 2D, Doppler, and color-flow Echocardiogram Insulation Manager: Madisyn Wayne RT(R) Ht: 6 ft 7 in Wt: 209lbs BSA: 2.32 BP: 123/78 mmHg Indications: Murmur, SOB, hx COVID, pneumonia, CAD, DD 2D Dimensions LVOT 2.05 cm (M/F) 1.5-2.5 LA Volume 44.30 mL LA Volume Index 19.09 mL/m2 (M/F) 16-34 M-Mode Dimensions RVDd 3.86 cm (0.9-2.6) LA Diam 3.63 cm (1.9-4.0) LVDd 4.26 cm (3.5-5.7) Ao Diam 2.91 cm (2.0-3.7) LVDs 3.06 cm (3.5-5.7) IVSd 1.05 cm (0.6-1.1) PWd 1.17 cm (0.6-1.1) EF (Teich) 54.90% FS 28.20% EDV (Teich) 81.30 mL ESV (Teich) 36.70 mL LV Diastology E Decel Time 230.00 (160-240 msec) E/A Ratio 1.1 MED E' 8.50 (< 7 cm/sec) E'/MED E' Ratio 8.88 (>14) LAT E' 9.00 (<10 cm/sec) E/LAT E' Ratio 8.39 (>14) Mitral Valve MV E Max Narendra. 76.00 (40-130 cm/s) MV A Velocity 67.00 (40-130 cm/s) E/A Ratio 1.13 MV Decel. Time 230.00 (160-240 ms) MV PHT 67.00 ms Left Ventricle Left atrium is qualitatively mildly enlarged, left ventricle is normal size, there is preserved left ventricular systolic function, visually estimated ejection fraction 55% with no regional wall motion abnormality, diastolic parameters are inconclusive in the study. Right Ventricle Right atrium and right ventricle are normal size and contractility. Aortic Valve Aortic valve is minimally thickened and fibrosed there is no aortic stenosis or aortic insufficiency. Mitral Valve Mitral valve grossly normal, there is trace mitral regurgitation. Tricuspid Valve Tricuspid grossly normal, there is trace tricuspid regurgitation, tricuspid regurgitation jet velocity is inadequate for calculation of the right ventricular systolic pressure. Pulmonic Valve Pulmonic valve is poorly visualized. Great Vessels Aortic root is normal size. Pericardium No significant pericardial effusion noted. Conclusion 1. Normal left ventricular size, preserved left ventricular systolic function, visually estimated ejection fraction 55% with no regional wall motion abnormality, diastolic parameters are inconclusive in this study. 2. Trace mitral and tricuspid regurgitation. 3. No significant pericardial effusion noted. Electronically signed by : Johnathon Martini MD 11/15/2020 12:36:07
--- NOTE | 2020-11-15 11:12 | HMH.PULMPN ---
Internal Medicine - PN: Subj *Date: 11/15/20 *Time: 11:13 Interval history: No acute respiratory vents overnight. He denies any new complaints. Admits improvement in his respiratory status. Exam - Constitutional Constitutional:: Present: no acute distress, comfortable - HENMT Exam HENMT: Present: normocephalic, atraumatic - Eye Exam Eyes:: Present: normal appearance both eyes and related structures - Neck Exam Neck:: Present: normal visual inspection - Respiratory Exam Respiratory:: Present: able to speak in complete sentences, no respiratory distress, normal respiratory effort, rales - Cardiovascular Exam Cardiac:: Present: S1, S2 - GI Exam GI:: Present: soft - Skin Exam Skin: Present: warm, no rash - Neurological Exam Neurological: Present: alert, awake, normal cognition - Extremities Exam Extremities: Present: no cyanosis, no clubbing, no edema - Psychiatric Exam Psychiatric: Present: normal affect Assessment and Plan (1) Pneumonia due to COVID-19 virus Status: Acute Category: Medical Code(s): U07.1 - COVID-19; J12.82 - Pneumonia due to coronavirus disease 2019 (2) Abnormal result of cardiovascular function study Status: Acute Category: Medical Code(s): R94.30 - Abnormal result of cardiovascular function study, unspecified (3) Heart murmur Status: Acute Category: Medical Code(s): R01.1 - Cardiac murmur, unspecified (4) CAD (coronary artery disease) Status: Chronic Qualifiers: Coronary Disease-Associated Artery/Lesion type: [place] artery [place] vs. transplanted heart: [place] heart Associated angina: without angina Qualified Code(s): I25.10 - Atherosclerotic heart disease of [place] coronary artery without angina pectoris Category: Medical Code(s): I25.10 - Atherosclerotic heart disease of [place] coronary artery without angina pectoris (5) Diastolic dysfunction Status: Chronic Category: Medical Code(s): I51.89 - Other ill-defined heart diseases - Assessment and plan all Dx Assessment and Plan for all problems:: #Acute hypoxic respiratory failure: #History of COVID-19 pneumonia: #Pneumomediastinum: 59-year-old male recent diagnosis of COVID-19 and discharged in the hospital presented to the clinic to evaluate for exertional dyspnea and found to be in new onset worsening respiratory along with subjective fevers and chills along with possible exposure. Patient chest x-ray showed bilateral interstitial changes along with pneumomediastinum. Repeat COVID-19 PCR positive, did not need isolation CT reviewed, no evidence of pulmonary embolism. Showed diffuse bilateral patchy & groundglass airspace disease. Evidence of pneumothorax noted. Pneumomediastinum noted. CRP significantly elevated at 162.3. Ferritin at 703. Elevated PSA, managed by primary team. Patient denies any productive phlegm Plan: - Robitussin DM for cough suppression -Continue oxygen supplementation to maintain O2 saturation goal of 88 to 92% outpatient this morning on room air saturating 88%, will continue 2 L oxygen therapy. -Wean ceftriaxone azithromycin to levofloxacin to complete a total of 7-day course -F/U nasal MRSA PCR -Continue Advair Advair HFA 500 twice daily #Thank you for involving pulmonary in this patient care. We will continue current oxygen therapy, along with levofloxacin, Robitussin DM and Advair and will follow the patient in pulmonary clinic in 2 weeks.
[2020-11-15 11:24] VITALS: BP 124/82; PULSE 88; RESP 22; TEMP 36.8; O2SAT 96
--- NOTE | 2020-11-15 14:22 | HMH.ACPN2 ---
Internal Medicine - PN: Subj *Date: 11/15/20 *Time: 14:25 Interval history: 59-year-old male patient lying in bed he does report some shortness of breath during the night, especially when he is ambulating to restroom. He does report he feels much better today than yesterday with oxygen. Current oxygenation 97% on 4 L per nasal cannula. He denies any tobacco use, respiratory problems, or cardiac issues in the past. Current medical condition and COVID-19 discussed with patient at length, he verbalizes understanding. Exam Vital signs and Labs for Last 24 Hours: Temp Pulse Resp BP Pulse Ox 98.2 F 88 22 124/82 96 11/15/20 11:24 11/15/20 11:24 11/15/20 11:24 11/15/20 11:24 11/15/20 11:24 Laboratory Results - last 24 hr 11/14/20 17:09: D-Dimer 1.14 H 11/14/20 17:09: Ferritin 703 H, Lactate Dehydrogenase 309 L, C-Reactive Protein 162.3 H 11/15/20 05:39: WBC 9.0, RBC 4.45 L, Hgb 13.8 L, Hct 41.5 L, MCV 93.3, MCH 31.0, MCHC 33.2, RDW 12.6, Plt Count 260, MPV 8.4, Neut % (Auto) 84.1 H, Lymph % (Auto) 10.3, [place] % (Auto) 5.3, Eos % (Auto) 0.2, Baso % (Auto) 0.2, Neut # (Auto) 7.5, Lymph # (Auto) 0.9, [place] # (Auto) 0.5, Eos # (Auto) 0.0, Baso # (Auto) 0.0 11/15/20 05:39: Sodium 139, Potassium 5.1, Chloride 103, Carbon Dioxide 29, Anion Gap 12.1, BUN 16 D, Creatinine 0.70, Estimated Creat Clear 104, Estimated GFR 115, Est GFR ( Amer) 139, Glucose 182 H D, Calcium 8.5, Triglycerides 56, Cholesterol 161, LDL Cholesterol Direct 93.43 L, VLDL Cholesterol 11, HDL Cholesterol 37 L, Cholesterol/HDL Ratio 4.4 H I & O for Last 24 hours: Intake & Output 11/12/20 11/13/20 11/14/20 11/15/20 23:59 23:59 23:59 23:59 Intake Total 576 / 576 840 / 840 Output Total 400 / 400 Balance 576 / 376 440 / 440 Weight 215 lb 209 lb 6 oz - Constitutional mild distress, thin - *Routine HEENT Exam Head: Present: normocephalic Eye: Present: EOMI ENT: Present: mucous membranes moist - *Routine Neck Exam Present: trachea midline. Absent: tracheal deviation - *Routine Respiratory Exam Present: decreased breath sounds, crackles. Absent: accessory muscle use - *Routine Cardiovascular Exam Present: RRR, murmur - *Routine Abdominal Exam Present: soft, normoactive bowel sounds. Absent: tenderness, guarding - *Routine Extremities Exam Present: full ROM, pulses intact. Absent: cyanosis, clubbing, edema, calf tenderness - *Routine Skin Exam Present: intact, dry, warm. Absent: cyanosis, erythema - *Routine Neurological Exam Present: alert, oriented X3. Absent: motor deficit - Routine Psychiatric Exam Present: normal affect, normal thought process. Absent: auditory hallucinations Assessment and Plan (1) Pneumonia due to COVID-19 virus Status: Acute Category: Medical Code(s): U07.1 - COVID-19; J12.82 - Pneumonia due to coronavirus disease 2019 (2) Abnormal result of cardiovascular function study Status: Acute Category: Medical Code(s): R94.30 - Abnormal result of cardiovascular function study, unspecified (3) Heart murmur Status: Acute Category: Medical Code(s): R01.1 - Cardiac murmur, unspecified (4) CAD (coronary artery disease) Status: Chronic Qualifiers: Coronary Disease-Associated Artery/Lesion type: [place] artery [place] vs. transplanted heart: [place] heart Associated angina: without angina Qualified Code(s): I25.10 - Atherosclerotic heart disease of [place] coronary artery without angina pectoris Category: Medical Code(s): I25.10 - Atherosclerotic heart disease of [place] coronary artery without angina pectoris (5) Diastolic dysfunction Status: Chronic Category: Medical Code(s): I51.89 - Other ill-defined heart diseases (6) Pneumomediastinum Status: Acute Category: Medical Code(s): J98.2 - Interstitial emphysema (7) Subcutaneous emphysema Status: Acute Category: Medical Code(s): T79.7XXA - Traumatic subcutaneous emphysema, initial encounter
[2020-11-15 15:00] VITALS: O2SAT 90
--- NOTE | 2020-11-15 15:14 | SW/DCPLANNER ---
This patient will need home O2 and portable at discharge. Patient information has been faxed to [facility]. I spoke with Joselin Ayala from [facility] and she has stated that portable device will be delivered to patients room prior to discharge.
[2020-11-15 15:26] VITALS: BP 138/92; PULSE 95; RESP 22; TEMP 36.6; O2SAT 96
--- NOTE | 2020-11-15 15:38 | HMH.DCSUM ---
General - General Admission date:: 11/14/20 Discharge date: 11/15/20 HPI HPI: 59-year-old male patient admitted from pulmonary clinic after referral from primary care for continuing shortness of breath after COVID-19 positive and hospital admission. He was Covid positive and admitted to [facility] for 9-day stay, he was not intubated and did not require BiPAP and he reports oxygenation was supported with nasal cannula only. He also did receive remdesivir and was discharged home around 11/04/2020 and has complained of shortness of breath since. He had an appointment today in primary care with shortness of breath, unable to complete sentences without breathing, and no pulmonary follow-up scheduled after hospital discharge. He was seen in [facility] pulmonary clinic and chest x-ray was ordered which revealed COVID-19 pneumonia and a concern for pneumomediastinum. He was admitted for further testing and oxygenation Hospital Course Hospital Course: 59-year-old male patient admitted from pulmonary clinic after referral from primary care for continuing shortness of breath after COVID-19 positive and hospital admission. He was Covid positive and admitted to [facility] for 9-day stay, he was not intubated and did not require BiPAP and he reports oxygenation was supported with nasal cannula only. He also did receive remdesivir and was discharged home around 11/04/2020 and has complained of shortness of breath since. He had an appointment today in primary care with shortness of breath, unable to complete sentences without breathing, and no pulmonary follow-up scheduled after hospital discharge. 11/14/20 CXR: IMPRESSION: Diffuse bilateral pneumonia with atelectatic changes which could be seen with Covid19 pneumonia. Trace left effusion. Subcutaneous emphysema with possible pneumomediastinum. Dictated by: Delroy Bird MD 11/14/20 Chest CTA: FINDINGS: There is diffuse subcutaneous emphysema within the lower neck extending into the sternoclavicular region and the upper presternal area. Small amount of gas is present in the left supraclavicular area and left axillary region. Small amount of gas noted in the left upper mediastinum just lateral to the carotid artery. There is a small amount of gas in the mediastinum anteriorly. Scattered small amount of gas is present also in the lower chest anteriorly within pre cardial fat. This does not appear to represent a pneumopericardium. No obvious pneumothorax. Multifocal areas of consolidation and ground-glass opacities with atelectatic changes are present in both upper and lower lobes along with fibrous bands consistent with Covid19 pneumonia. There is trace right-sided pleural effusion. No evidence of aortic aneurysm or dissection. No evidence of pulmonary embolus. No acute bony findings. Upper abdominal images show fatty liver. No evidence of pneumoperitoneum. IMPRESSION: 1. Mild diffuse subcutaneous emphysema in the upper chest and left axillary region. 2. Pneumomediastinum. No evidence of pneumothorax. 3. Diffuse multifocal areas of consolidation with atelectasis, ground-glass opacities, and fibrous bands consistent with Covid19 pneumonia 4. No evidence of pulmonary embolus or aortic aneurysm or dissection Dictated by: Delroy Bird MD 11/15/20 ECHO: Conclusion 1. Normal left ventricular size, preserved left ventricular systolic function, visually estimated ejection fraction 55% with no regional wall motion abnormality, diastolic parameters are inconclusive in this study. 2. Trace mitral and tricuspid regurgitation. 3. No significant pericardial effusion noted. Electronically signed by : Johnathon Martini MD Pulmonology has seen and recommends: Plan: - Robitussin DM for cough suppression -Continue oxygen supplementation to maintain O2 saturation goal of 88 to 92% outpatient this morning on room air s
== END 2020-11-15 17:05 | disposition home or self-care (01) | DRG 177 ==
PROVIDERS: Internal Medicine Pulmonary Disease; Admitting Provider Emergency Medicine; PCP Nurse Practitioner Family; Visit Provider Emergency Medicine
DX: U07.1 COVID-19 (principal); J12.82 Pneumonia due to coronavirus disease 2019; T79.7XXA Traumatic subcutaneous emphysema, initial encounter; I25.10 Atherosclerotic heart disease of native coronary artery without angina pectoris; F41.9 Anxiety disorder, unspecified; F32.9 Major depressive disorder, single episode, unspecified; J98.2 Interstitial emphysema
CPT/HCPCS: 36415; 71275; 80048; 80061; 82728; 83615; 85025; 85378; 86140; 87081; 93306; 94640; J0456; Q9967

== ENCOUNTER → 2020-11-27 07:22 | Outpatient (CLI) | payer BC, SELFPAY ==
--- NOTE | 2020-11-27 08:30 | PC.NURSE ---
PFT and 6 MWT completed without complications. Albuterol 0.083% given via HHN, per protocol, Pt tolerated tx well.
== END ==
PROVIDERS: PCP Nurse Practitioner Family; Visit Provider Nurse Practitioner Family
DX: U07.1 COVID-19 (principal)
CPT/HCPCS: 94060; 94618; 94726; 94729

== ENCOUNTER → 2022-11-18 23:36 | Outpatient (CLI) | payer BC, SELFPAY ==
[2022-11-18 19:46] LABS: Basophils % 0.3 % (0.1-2.0); Eosinophils # 0.4 K/mm3 (0.0-0.4); Eosinophils % 5.9 % (0.1-12.0); Hematocrit 50.1 % (42.0-52.0); Hemoglobin 16.6 g/dL (14.1-18.0); Mean Corpuscular Hemoglobin 30.7 pg (27.0-31.2); Mean Corpuscular Volume 92.8 fl (80-94); Mean Platelet Volume 9.2 fl (7.4-10.4); Monocytes # 0.6 K/mm3 (0.1-1.0); Monocytes % 9.2 % (1.7-9.3); Neutrophils # 3.8 K/mm3 (1.8-7.8); Neutrophils % 55.6 % (37.0-80.0); Platelet Count 270 K/mm3 (142-424); Red Cell Distribution Width 12.7 % (11.5-17.5); White Blood Count 6.8 K/mm3 (4.8-10.8)
[2022-11-18 20:11] LABS: Alanine Aminotransferase 54 U/L (12-78); Albumin Level 4.5 g/dl (3.5-5.0); Albumin/Globulin Ratio 1.5 (1.1-1.8); Alkaline Phosphatase 70 U/L (38-126); Anion Gap 17.6 mEq/L (5-15); Aspartate Amino Transferase 54 U/L (17-59); Bilirubin,Total 0.5 mg/dl (0.2-1.3); Blood Urea Nitrogen 16 mg/dl (9-20); Carbon Dioxide 24 mmol/L (22.0-30.0); Chloride 102 mmol/L (98-107); Chol/HDL Ratio 4.8 (1-3.5); Cholesterol 209 mg/dl (140-200); Estimated Glomerular Filt Rate 85 ml/min (>60); GFR (African American) 103 ML/MIN (>60); Globulin 3.1 g/dL (1.3-3.2); Glucose 104 mg/dl (74-100); HDL Cholesterol 44 mg/dl (40-60); Potassium 4.6 mmoL/L (3.5-5.1); Sodium 139 mmol/L (136-145); Total Protein,Serum 7.6 g/dl (6.3-8.2); Triglycerides 153 mg/dl (30-150); VLDL Cholesterol 31 mg/dL (0-40)
[2022-11-18 20:22] LABS: Direct LDL Cholesterol 128.68 mg/dL (100-129)
[2022-11-18 20:54] LABS: Prostate Specific Ag Screen 1.5 ng/ml (0.0-4.0)
[2022-11-20 13:22] LABS: Testosterone,Total 338 ng/dL (264-916)
== END ==
LOC: LAB.DROPOF 23:37
PROVIDERS: PCP Family Medicine; Visit Provider Family Medicine
DX: M25.649 Stiffness of unspecified hand, not elsewhere classified (principal); Z79.899 Other long term (current) drug therapy; Z12.5 Encounter for screening for malignant neoplasm of prostate; M25.561 Pain in right knee; M25.562 Pain in left knee; M79.646 Pain in unspecified finger(s)
CPT/HCPCS: 80053; 80061; 83036; 84403; 85025; G0103

== ENCOUNTER → 2023-03-12 08:40 | Outpatient (CLI) | payer SELFPAY ==
[2023-03-12 18:16] LABS: Basophils % 0.3 % (0.1-2.0); Eosinophils # 0.2 K/mm3 (0.0-0.4); Eosinophils % 1.3 % (0.1-12.0); Hematocrit 48.6 % (42.0-52.0); Hemoglobin 16.3 g/dL (14.1-18.0); Lymphocytes # 1.4 K/mm3 (0.7-4.5); Lymphocytes % 10.3 % (10-50); Mean Corpuscular HGB Conc 33.4 g/dL (31.8-35.4); Mean Corpuscular Hemoglobin 31.1 pg (27.0-31.2); Mean Corpuscular Volume 93.1 fl (80-94); Mean Platelet Volume 9.1 fl (7.4-10.4); Monocytes # 0.7 K/mm3 (0.1-1.0); Monocytes % 4.9 % (1.7-9.3); Neutrophils # 11.1 K/mm3 (1.8-7.8); Neutrophils % 83.3 % (37.0-80.0); Platelet Count 197 K/mm3 (142-424); Red Blood Count 5.23 M/mm3 (4.60-6.20); Red Cell Distribution Width 12.7 % (11.5-17.5); White Blood Count 13.4 K/mm3 (4.8-10.8)
[2023-03-12 18:57] LABS: Alanine Aminotransferase 33 U/L (12-78); Albumin/Globulin Ratio 1.4 (1.1-1.8); Alkaline Phosphatase 67 U/L (38-126); Anion Gap 11.9 mEq/L (5-15); Aspartate Amino Transferase 37 U/L (17-59); Bilirubin,Total 0.7 mg/dl (0.2-1.3); Blood Urea Nitrogen 18 mg/dl (9-20); Calcium 8.6 mg/dl (8.4-10.2); Carbon Dioxide 21 mmol/L (22.0-30.0); Chloride 102 mmol/L (98-107); Estimated Glomerular Filt Rate 85 ml/min (>60); GFR (African American) 103 ML/MIN (>60); Globulin 2.8 g/dL (1.3-3.2); Glucose 175 mg/dl (74-100); Potassium 3.9 mmoL/L (3.5-5.1); Sodium 131 mmol/L (136-145); Total Protein,Serum 6.8 g/dl (6.3-8.2)
[2023-03-16 15:47] LABS: Prostate Specific Ag, Diagnost 6.64 ng/ml (0.0-4.0)
== END ==
LOC: LAB.DROPOF 03-13 08:40
PROVIDERS: PCP Family Medicine; Visit Provider Family Medicine
DX: R39.9 Unspecified symptoms and signs involving the genitourinary system (principal); N41.9 Inflammatory disease of prostate, unspecified; N39.0 Urinary tract infection, site not specified; B96.89 Other specified bacterial agents as the cause of diseases classified elsewhere
CPT/HCPCS: 80053; 84153; 85025; 87086

== ENCOUNTER 2023-12-06 10:45 | Outpatient (CLI) | payer MEDICARE, SELFPAY ==
[2023-12-06 19:16] LABS: Alanine Aminotransferase 26 U/L (12-78); Albumin Level 4.3 g/dl (3.5-5.0); Albumin/Globulin Ratio 1.3 (1.1-1.8); Alkaline Phosphatase 59 U/L (38-126); Anion Gap 8.7 mEq/L (5-15); Aspartate Amino Transferase 30 U/L (17-59); Bilirubin,Total 0.6 mg/dl (0.2-1.3); Blood Urea Nitrogen 19 mg/dl (9-20); Calcium 9.4 mg/dl (8.4-10.2); Carbon Dioxide 28 mmol/L (22.0-30.0); Chloride 106 mmol/L (98-107); Chol/HDL Ratio 4.5 (1-3.5); Cholesterol 266 mg/dl (140-200); Estimated Glomerular Filt Rate 61 ml/min (>60); GFR (African American) 74 ML/MIN (>60); Globulin 3.3 g/dL (1.3-3.2); Glucose 92 mg/dl (74-100); HDL Cholesterol 59 mg/dl (40-60); Potassium 4.7 mmoL/L (3.5-5.1); Sodium 138 mmol/L (136-145); Total Protein,Serum 7.6 g/dl (6.3-8.2); Triglycerides 72 mg/dl (30-150); VLDL Cholesterol 14 mg/dL (0-40)
[2023-12-06 19:24] LABS: Hemoglobin A1C 5.6 % (4.0-6.0)
[2023-12-06 19:27] LABS: Direct LDL Cholesterol 165.34 mg/dL (100-129)
[2023-12-06 19:40] LABS: Prostate Specific Ag Screen 1.1 ng/ml (0.0-4.0)
[2023-12-06 21:52] LABS: Basophils # 0.1 K/mm3 (0-0.2); Basophils % 0.8 % (0.1-2.0); Eosinophils # 0.2 K/mm3 (0.0-0.4); Eosinophils % 3.2 % (0.1-12.0); Hematocrit 55.9 % (42.0-52.0); Hemoglobin 16.8 g/dL (14.1-18.0); Lymphocytes # 1.6 K/mm3 (0.7-4.5); Lymphocytes % 28.5 % (10-50); Mean Corpuscular Hemoglobin 29.2 pg (27.0-31.2); Mean Corpuscular Volume 97.1 fl (80-94); Mean Platelet Volume 9.3 fl (7.4-10.4); Monocytes # 0.5 K/mm3 (0.1-1.0); Monocytes % 8.4 % (1.7-9.3); Neutrophils # 3.4 K/mm3 (1.8-7.8); Neutrophils % 59.2 % (37.0-80.0); Platelet Count 209 K/mm3 (142-424); Red Blood Count 5.75 M/mm3 (4.60-6.20); Red Cell Distribution Width 13.6 % (11.5-17.5); White Blood Count 5.8 K/mm3 (4.8-10.8)
[2023-12-08 08:21] LABS: Testosterone,Total 176 ng/dL (264-916)
== END 2023-12-06 23:59 | disposition home or self-care (01) ==
LOC: LAB.DROPOF 12-07 10:26
PROVIDERS: PCP Family Medicine; Visit Provider Family Medicine
DX: Z13.1 Encounter for screening for diabetes mellitus; Z12.5 Encounter for screening for malignant neoplasm of prostate; I25.10 Atherosclerotic heart disease of native coronary artery without angina pectoris; R97.20 Elevated prostate specific antigen [PSA]; E78.5 Hyperlipidemia, unspecified
CPT/HCPCS: 80053; 80061; 83036; 84403; 85025; G0103

== ENCOUNTER 2024-10-02 09:46 | Outpatient (CLI) | payer MEDICARE, SELFPAY ==
[2024-10-02 14:40] LABS: Hematocrit 47.8 % (42.0-52.0); Hemoglobin 16.0 g/dL (14.1-18.0); Immature Granulocytes % 0.2 %; Mean Corpuscular HGB Conc 33.5 g/dL (31.8-35.4); Mean Corpuscular Hemoglobin 30.3 pg (27.0-31.2); Mean Corpuscular Volume 90.5 fl (80-94); Nucleated Red Blood Cells % 0 %; Platelet Count 204 K/mm3 (142-424); Red Blood Count 5.28 M/mm3 (4.60-6.20); Red Cell Distribution Width-SD 42.7 fL; White Blood Count 5.5 K/mm3 (4.8-10.8)
[2024-10-02 15:59] LABS: Alanine Aminotransferase 21 U/L (12-78); Albumin Level 4.6 g/dl (3.5-5.0); Albumin/Globulin Ratio 1.8 (1.1-1.8); Alkaline Phosphatase 56 U/L (38-126); Anion Gap 17.5 mEq/L (5-15); Aspartate Amino Transferase 24 U/L (17-59); Bilirubin,Total 0.7 mg/dl (0.2-1.3); Blood Urea Nitrogen 14 mg/dl (9-20); Calcium 9.6 mg/dl (8.4-10.2); Carbon Dioxide 25 mmol/L (22.0-30.0); Chloride 100 mmol/L (98-107); Cholesterol 200 mg/dl (140-200); Creatinine,Serum 0.90 mg/dl (0.66-1.25); Estimated Glomerular Filt Rate 85 ml/min (>60); GFR (African American) 102 ML/MIN (>60); Globulin 2.5 g/dL (1.3-3.2); Glucose 97 mg/dl (74-100); HDL Cholesterol 57 mg/dl (40-60); Potassium 4.5 mmoL/L (3.5-5.1); Sodium 138 mmol/L (136-145); Total Protein,Serum 7.1 g/dl (6.3-8.2); Triglycerides 82 mg/dl (30-150)
[2024-10-02 22:08] LABS: Hepatitis C Ab Qual. W/ RFX NEGATIVE (Negative)
[2024-10-03 08:36] LABS: Hepatitis B Surface Antigen Negative (Negative)
--- OUTSIDE RECORDS SUMMARY | 2024-10-03 10:30 | XMS_ITS | Clinical Summary ---
Author Organization [facility] Address [address] [place] [address] Care Team Providers Care Mechanical Integrity Engineer Name Role Phone Connor Bravo MD Primary Care Provider [phone] Allergies No known active allergies Medications lisinopril (PRINIVIL;ZESTRIL) 20 MG tablet 01/17/2020 Active meloxicam (MOBIC) 15 MG tablet 02/24/2020 Active citalopram (CELEXA) 20 MG tablet 01/17/2020 Active Social History Tobacco Use Types Packs/Day Years Used Date Smoking Tobacco: Never Smokeless Tobacco: Never Sex and Gender Information Value Date Recorded Sex Assigned at Not on file Legal Sex Male 12:28 PM EST Gender Identity Not on file Sexual Orientation Not on file Last Filed Vital Signs Vital Sign Reading Time Taken Comments Blood Pressure - - Pulse - - Temperature 36.8 C (98.2 F) 04/09/2020 10:14 AM EST Respiratory Rate - - Oxygen Saturation - - Inhaled Oxygen Concentration - - Weight 108.9 kg (240 lb 1.3 oz) 021 10:14 AM EST Height 200.7 cm (6' 7.02 ) 04/09/2020 1 0:14 AM EST Body Mass Index 27.04 04/09/2020 10:14 AM EST Plan of Treatment Not on file Insurance [place] [employer] Care Teams Mechanical Integrity Engineer Relationship Specialty Start Date End Date Connor Bravo MD PCP - General Family Medicine 03/01/20
--- OUTSIDE RECORDS SUMMARY | 2024-10-03 10:30 | XMS_ITS | Clinical Summary ---
Author Organization [facility] Address [address] [place] [id number] Care Team Providers Care Second Hand Name Role Phone Vic Alves MD Primary Care Provider [phone] Source Comments This information has been disclosed to you from confidential records protectedfrom disclosure by state law. You shall make no further disclosure of thisinformation without the specific, written, and informed release of theindividual to whom it pertains, or as otherwise permitted by law. A generalauthorization for the release of medical or other information is not sufficientfor the purposes of therelease of HIV test results or diagnoses. [id number] Allergies No known active allergies Medications testosterone (ANDROGEL) 1 %(50 mg/5 gram) gel Place 5 g onto the skin daily. Active piroxicam (FELDENE) 10 MG capsule Take 10 mg by mouth daily. Active pravastatin (PRAVACHOL) 10 MG tablet Take 10 mg by mouth daily. Active hydrOXYzine (ATARAX) 10 MG tablet Take 10 mg by mouth 3 (three) times daily as needed. Active predniSONE (DELTASONE) 1 MG tabletIndicatio ns:Pemphigoid 4 po qd 120 tablet 5 12/01/2011 Active clobetasol (TEMOVATE) 0.05 % ointmentIndicat ions:Pemphigoid Apply bid to new lesions until clear 30 g 5 12/01/2011 Active Active Problems Problem Noted Date Diagnosed Date Pyogenic granuloma of skin and subcutaneous tiss ue 02/06/2010 Other seborrheic keratosis 02/06/2010 Other specified disease of sebaceous glands 01/20 Family History Medical History Relation Comments Melanoma Neg Hx Relation Status Comments Other Patient denies f amily history of melanoma Social History Tobacco Use Types Packs/Day Years Used Date Smoking Tobacco: Never Comments:02/06/10 Alcohol Use Standard Drinks/Week Comments Yes 0 (1 standard drink = 0.6 oz pur e alcohol) occasionally 02/06/10 Sex and Gender Information Value Date Recorded Sex Assigned at Not on file Legal Sex Male 6:51 PM EST Gender Identity Not on file Sexual Orientation Not on file Plan of Treatment Not on [place] [address] [place] [address] [employer] Care Teams Second Hand Relationship Specialty Start Date End Date Vic Alves MD [address] [place] [facility] [place] [address] PCP - General Internal Medicine 10/13/11
--- OUTSIDE RECORDS SUMMARY | 2024-10-03 10:30 | XMS_ITS | Clinical Summary ---
Author Organization [facility] Address [address] [place] [address] Phone Care Team Providers Care Chalker Soles Name Role Phone Unavailable Primary Care Provider Unavailabl e Allergies No known active allergies Medications lisinopriL (PRINIVIL;ZESTR [place]) 10 mg Oral Tablet Take 10 mg by mouth daily. Active citalopram (CELEXA) 10 mg Oral Tablet Take 10 mg by mouth daily. Active testosterone 20.25 mg/1.25 gram (1.62 %) TD Gel in Metered-dose Pump Place 20.25 mg onto the skin. Apply topically as directed Active guaiFENesin (ROBITUSSIN) 100 mg/5 mL Oral Liquid Take 10 mL by mouth every 4 hours as needed for Congestion. 1 Active Active Problems Problem Noted Date Diagnosed Date Acute respiratory failure with hypoxia 1 Pneumonia due to COVID-19 virus 10/26/2020 Essential hypertension 10/26/2020 Pneumomediastinum Medical History Medical History Date Comments Hypertension Covid Social History Tobacco Use Types Packs/Day Years Used Date Smoking Tobacco: Never Smokeless Tobacco: Never Alcohol Use Standard Drinks/Week Comments Yes 0 (1 standard drink = 0.6 oz pur e alcohol) Sex and Gender Information Value Date Recorded Sex Assigned at Not on file Legal Sex Male 8:46 PM EDT Gender Identity Not on file Sexual Orientation Not on file Obstetrics History Last Filed Vital Signs Vital Sign Reading Time Taken Comments Blood Pressure 95/70 11/04/2020 10:48 AM EDT Pulse 60 11/04/2020 10:48 AM EDT Temperature 36.6 C (97.8 F) 11/04/2020 10:48 AM EDT Respiratory Rate 18 11/04/2020 10:48 AM EDT Oxygen Saturation 92% 11/04/2020 10:48 AM EDT Inhaled Oxygen Concentration - - Weight 102.1 kg (225 lb) 10/26/2020 2:21 PM EDT Height 200.7 cm (6' 7 ) 10/26/2020 2:21 PM EDT Body Mass Index 25.35 10/26/2020 2:21 PM EDT Plan of Treatment Health Maintenance Due Date Last Done Comments Annual Wellness Exam 1961 Hepatitis C Screening 1976 Cologuard 12/14/2003 Colon Cancer Screening 12/14/2003 Colonoscopy 12/14/2003 FIT 12/14/2003 Sigmoidoscopy 12/14/2003 Virtual Colonography 12/14/2003 Pneumococcal Vaccine 50+ (1 of 1 - PCV) 2008 Zoster (1 of 2) 2008 COVID-19 Vaccine (1 - 2023-2 5 season) 2023 Influenza Vaccine (#1) 2024 DTaP/TDaP/Td (2 - Td or Tdap) 10/23/2026, 05/26/1996 Hepatitis B Vaccine Aged Out No longe r eligible based on patient's age to complete this topic Meningococcal B Vaccine Aged Out No l onger eligible based on patient's age to complete this topic Insurance [place] Advance Directives For more information, please contact: [phone] * Full Code (Latest Code Status on File) Date Activated Date Inactivated Comments 10/26/2020 10:15 PM 11/04/2020 5:41 PM
[2024-10-03 12:13] LABS: Testosterone,Total 464 ng/dL (264-916)
== END 2024-10-02 23:59 | disposition home or self-care (01) ==
LOC: LAB.DROPOF 10-03 10:05
PROVIDERS: PCP Family Medicine; Visit Provider Family Medicine
DX: I10 Essential (primary) hypertension (principal); E29.1 Testicular hypofunction; Z11.59 Encounter for screening for other viral diseases
CPT/HCPCS: 80053; 80061; 80074; 84403; 85025; 87340; 87389